=== PATIENT | male | born 1950 | race Two or more races ===

== ENCOUNTER 2020-05-12 11:28 | Outpatient (CLI) | payer MEDICARE, OTHER | END 2020-05-12 23:59 | disposition home or self-care (01) | LOC: LAB 11:28 | PROVIDERS: ATTEND Internal Medicine Interventional Cardiology | DX: Z01.812 Encounter for preprocedural laboratory examination (principal); Z20.822 Contact with and (suspected) exposure to COVID-19 | CPT/HCPCS: 87811; C9803 ==

== ENCOUNTER 2020-05-14 07:00 | Day surgery (SDC) | payer MEDICARE, OTHER ==
[2020-05-14] VITALS (12 sets, daily range): BP systolic 96–153; BP diastolic 53–81
[~2020-05-14] VITALS: Ht 162.6 cm; Wt 79.4 kg
[2020-05-14 07:44] LABS: BASOPHILS # (AUTO) 0.1 /CMM (0.0-0.2); EOSINOPHILS % (AUTO) 0.8 % (0.0-6.0); HEMATOCRIT 53 % (39-51); LYMPHOCYTES # (AUTO) 2.3 /CMM (0.8-4.8); LYMPHOCYTES % (AUTO) 27.5 % (20.0-44.0); MEAN CORPUSCULAR HGB CONC 34 g/dl (31.0-36.0); MEAN CORPUSCULAR VOLUME 91 fL (80-96); MONOCYTES # (AUTO) 0.6 /CMM (0.1-1.30); MONOCYTES % (AUTO) 7.3 % (2.0-12.0); NEUTROPHILS # (AUTO) 5.3 /CMM (1.8-8.9); NEUTROPHILS % (AUTO) 63.4 % (43.0-81.0); PLATELET COUNT (AUTO) 181 /CMM (150-450); RED BLOOD CELL COUNT(AUTO) 5.82 MIL/uL (4.5-6.0); WHITE BLOOD COUNT (AUTO) 8.4 K/uL (4.3-11.0)
[2020-05-14] MEDS ORDERED: IODIXANOL 150 ML IV ONE (07:45)
[2020-05-14] MEDS ORDERED: LIDOCAINE HCL/MPF 1% 30 ML VIAL IJ ONE (07:46)
[2020-05-14 07:56] LABS: CALCIUM, SERUM 8.7 mg/dL (8.5-10.1); CREATININE 0.9 mg/dL (0.6-1.3); POTASSIUM 4.3 mmol/L (3.5-5.1)
[2020-05-14] MEDS ORDERED: MIDAZOLAM HCL 2 MG/2ML VIAL ONE (07:56)
[2020-05-14] MEDS ORDERED: FENTANYL PF 100MCG/2ML AMPUL ONE (07:56)
[2020-05-14] MEDS ORDERED: NITROGLYCERIN ICAR 1,000 MCG/10 ML VIAL ICAR ONE ×2 (07:57→08:15)
[2020-05-14] MEDS ORDERED: HEPARIN SODIUM, PORCINE 1,000 UNIT/ML VIAL ONE (08:01)
[2020-05-14] MEDS ORDERED: METF-440 PO (08:13)
[2020-05-14] MEDS ORDERED: LISI-768 PO (08:13)
[2020-05-14] MEDS ORDERED: ASPI-1169 PO (08:13)
[2020-05-14] MEDS ORDERED: ATEN50TA PO (08:13)
[2020-05-14] MEDS ORDERED: EMPA25TA PO (08:13)
[2020-05-14] MEDS ORDERED: VERAPAMIL HCL IV 5 MG/2 ML VIAL ONE (08:15)
[2020-05-14] MEDS ORDERED: IV SET PRIMARY PUMP SET 1 EA INFUS.SET MC ONE (08:33)
[2020-05-14] MEDS ORDERED: ASPIRIN 81 MG TAB.CHEW ONE (09:29)
[2020-05-14] MEDS ORDERED: ASPIRIN 81 MG TAB.CHEW PO STA (10:03)
[2020-05-14 10:12] LABS: EOSINOPHILS % (MANUAL) 1 % (0-4); LYMPHOCYTES % (MANUAL) 28 % (16-48); MONOCYTES % (MANUAL) 5 % (0-11.0); NEUTROPHILS % (MANUAL) 66 (42-76)
--- NOTE | 2020-05-14 10:28 | NUR ---
O2 Saturation on R index finger @ 97%. 3 ML of air was removed, no bleeding noted. Patient is AAOx3, no resp distress noted, denies any pain.
--- NOTE | 2020-05-14 10:43 | NUR ---
O2 Saturation on R index finger @ 98%. 3 ML of air was removed, no bleeding noted. Patient is AAOx3, no resp distress noted, denies any pain.
--- NOTE | 2020-05-14 10:58 | NUR ---
O2 Saturation on R index finger @ 99%. 3 ML of air was removed, no bleeding noted. Patient is AAOx3, no resp distress noted, denies any pain.
--- NOTE | 2020-05-14 12:08 | NUR ---
Patient ambulates to the restroom in stable condition and denies any discomfort at this time. VSS.
--- NOTE | 2020-05-14 12:19 | NUR ---
IV removed. Catheter intact and site benign. Pressure and 4x4 applied to site. No bleeding noted.Patient discharged to home in stable condition. Written and verbal after care instructions given. Patient verbalizes understanding of instruction.
== END 2020-05-14 12:29 | disposition home or self-care (01) ==
LOC: CATHLAB 07:00
PROVIDERS: ATTEND Internal Medicine Interventional Cardiology
DX: R07.9 Chest pain, unspecified (principal); T82.855A Stenosis of coronary artery stent, initial encounter; E11.9 Type 2 diabetes mellitus without complications; I10 Essential (primary) hypertension; E78.5 Hyperlipidemia, unspecified; Y71.8 Miscellaneous cardiovascular devices associated with adverse incidents, not elsewhere classified
CPT/HCPCS: 36415; 80048; 85025; 85730; 93005 ×2; 93454; 99152; C1887; J1644 ×2; J2250; J3010; J3490 ×2; Q9967; G0500

== ENCOUNTER 2020-07-26 16:06 | Emergency (ER) | payer MEDICARE, OTHER ==
[~2020-07-26] VITALS: Ht 162.6 cm; Wt 77.1 kg
[~2020-07-26 16:06] MED LIST: ASPI-1169 PO; ATEN50TA PO; EMPA25TA PO; LISI-768 PO; METF-440 PO
--- NOTE | 2020-07-26 16:45 | NUR ---
PT BIB C/O ABSCESS ON THE BUTTOCKS AREA X 3 DAYS. PT AAOX4, VSS. RR EVEN & UNLABORED. DENIES CP, SOB, DIZZINESS, N/V/D AT THIS TIME. PT SEEN & EVAL'D BY DR. NICHOLE. WILL CONT TO MONITOR.
[2020-07-26 17:01] LABS: BASOPHILS # (AUTO) 0.1 /CMM (0.0-0.2); BASOPHILS % (AUTO) 0.7 % (0.0-2.0); HEMATOCRIT 44 % (39-51); HEMOGLOBIN 14.6 g/dL (13.5-17.5); LYMPHOCYTES # (AUTO) 1.9 /CMM (0.8-4.8); LYMPHOCYTES % (AUTO) 20.8 % (20.0-44.0); MEAN CORPUSCULAR HGB CONC 33 g/dl (31.0-36.0); MEAN CORPUSCULAR VOLUME 90 fL (80-96); MONOCYTES # (AUTO) 0.8 /CMM (0.1-1.30); MONOCYTES % (AUTO) 8.8 % (2.0-12.0); NEUTROPHILS # (AUTO) 6.2 /CMM (1.8-8.9); NEUTROPHILS % (AUTO) 66.7 % (43.0-81.0); PLATELET COUNT (AUTO) 189 /CMM (150-450); RED BLOOD CELL COUNT(AUTO) 4.91 MIL/uL (4.5-6.0); WHITE BLOOD COUNT (AUTO) 9.3 K/uL (4.3-11.0)
[2020-07-26 17:16] LABS: CALCIUM, SERUM 8.7 mg/dL (8.5-10.1); CREATININE 0.9 mg/dL (0.6-1.3); POTASSIUM 3.9 mmol/L (3.5-5.1)
[2020-07-26] MEDS ORDERED: IOHEXOL-300 100 ML VIAL IV ONE (17:42)
[2020-07-26] MEDS ORDERED: IV NS 0.9% 250 ML IV ONE (17:42)
[2020-07-26] MEDS ORDERED: CT SWABBABLE VALVE TRANS SET 1 EA INFUS.SET MC ONE (17:42)
--- NOTE | 2020-07-26 17:55 | NUR ---
PT TO CT VIA JACOB
[2020-07-26] MEDS ORDERED: LIDOCAINE 1%-EPI 1:100,000 20 ML VIAL ONE (19:09)
[2020-07-26] MEDS ORDERED: CEPH500C2 PO (19:26)
[2020-07-26] MEDS ORDERED: TRAM50TA2 PO (19:26)
[2020-07-26] MEDS ORDERED: CEPHALEXIN MONOHYDRATE 500 MG CAPSULE PO ONE ×2 (19:30→19:45)
--- NOTE | 2020-07-26 19:49 | NUR ---
Patient discharged to home in stable condition. Written and verbal after care instructions given. Patient verbalizes understanding of instruction.IV removed. Catheter intact and site benign. Pressure and 4x4 applied to site. No bleeding noted. Pt ambulatory with a steady gait
[2020-07-26 19:50] VITALS: BP 132/85
== END 2020-07-26 19:50 | disposition home or self-care (01) ==
LOC: ER 16:13
DX: L02.31 Cutaneous abscess of buttock (principal); I10 Essential (primary) hypertension; E11.9 Type 2 diabetes mellitus without complications; Z95.818 Presence of other cardiac implants and grafts; F17.200 Nicotine dependence, unspecified, uncomplicated; Z79.82 Long term (current) use of aspirin; Z79.899 Other long term (current) drug therapy; Z79.84 Long term (current) use of oral hypoglycemic drugs
CPT/HCPCS: 10060; 36415; 74177; 80048; 85025; 85610; 85730; 99285; A6403; A6407; J3490; J7050; Q9967